=== PATIENT | female | born 2000 | race Caucasian/White ===

== ENCOUNTER 2021-05-17 18:20 | Emergency (ER) | payer OTHER ==
[~2021-05-17 18:20] MED LIST: BENTYL10 MG PO; CELEXA20 MG PO; LESSINA-28 TAB1 EACH PO; LEXAPRO 10MG TA10 MG PO; MACROBID100 MG PO; MIRALAX17 GM PO; NAPROSYN375 MG PO; NORCO 5-325 TA1 EACH PO; PREDNISONE 20MG20 MG PO; PRILOSEC20 MG PO; VENTOLIN HFA IN18 GM INH; ZOFRAN8 MG PO
[2021-05-17 20:15] LABS: BILIRUBIN 1+ mg/dL (NEGATIVE); BLOOD 3+ Ery/uL (NEGATIVE); CLARITY CLEAR (CLEAR); COLOR YELLOW (YELLOW); GLUCOSE (U) NORMAL (NORMAL); LEUKOCYTES NEGATIVE Leu/uL (NEGATIVE); NITRITE NEGATIVE (NEGATIVE); PROTEIN TRACE (LOW) mg/dL (NEGATIVE); SPECIFIC GRAVITY 1.025 (1.001-1.030); UROBILINOGEN 0.2 mg/dL (0.2-1.0)
[2021-05-17 20:40] LABS: URINARY RBC TNTC
[2021-05-17 20:41] LABS: MUCOUS MODERATE
== END 2021-05-17 22:08 | disposition left against medical advice (07) ==
LOC: FER 18:20
PROVIDERS: Surgery
DX: R10.30 Lower abdominal pain, unspecified (principal); N93.9 Abnormal uterine and vaginal bleeding, unspecified; Z53.8 Procedure and treatment not carried out for other reasons
CPT/HCPCS: 81001; 99281